=== PATIENT | female | born 1990 | race Caucasian/White ===

== ENCOUNTER 2017-01-18 07:43 | Emergency (ER) | payer MEDICAID, OTHER ==
[2017-01-18 07:44] VITALS: BMI 31.3
[2017-01-18 08:01] VITALS: TEMP 98.2
[2017-01-18] MEDS ORDERED: Sodium Chloride 0.9% 1,000 ML IV STA (08:14)
[2017-01-18] MEDS ORDERED: Albuterol-Ipratrop 3 mg / 0.5 (3 ml) UD IH STA (08:15)
[2017-01-18 08:34] LABS: BASO # 0.01 K/mm3 (0.0-2.0); BASO % 0.2 % (0.0-3.0); EOS # 0.1 (0.0-0.7); EOS % 1.8 % (1.5-5.0); GRAN # 3.13 (1.4-6.5); GRAN % 57.2 % (50.0-68.0); HEMATOCRIT 37.9 % (36.0-48.0); LYMPH # 1.7 (1.2-3.4); LYMPH % 30.7 % (22.0-35.0); MEAN CELL VOLUME 74.3 fl (80.0-105.0); MEAN CORPUSCULAR HEMOGLOBIN 23.5 pg (25.0-35.0); MEAN CORPUSCULAR HGB CONC 31.7 g/dl (31.0-37.0); MEAN PLATELET VOLUME 10.2 fl (7.0-11.0); MONO # 0.6 (0.1-0.6); MONO % 10.1 % (1.0-6.0); RED CELL DISTRIBUTION WIDTH 15.2 % (11.5-14.5); WHITE BLOOD COUNT 5.5 10^3/ul (4.5-11.0)
--- NOTE | 2017-01-18 08:35 | ED PDOC ---
Arrival/HPI - General Chief Complaint: Shortness Of Breath Time Seen by Provider: 01/18/17 08:03 Historian: Patient, Parent - History of Present Illness Narrative History of Present Illness (Text): 01/18/17 08:24 A 26 year old female with no significant past medical history, presents to the emergency department with a complaint of chest discomfort, cough,sore throat, vomiting, rhinorrhea, and difficulty breathing. The patients states that since yesterday, she has vomited 5 times and she has been feeling a burning sensation in her chest. The patient denies denies fevers, chills, headache, dizziness, abdominal pain, nausea, diarrhea, back pain, neck pain, urinary/bowel changes, or any other complaint. PMD: Dr. Sarah Melo Time/Duration: Other (Yesterday) Symptom Onset: Sudden Symptom Course: Unchanged Activities at Onset: Rest, Light Context: Home Past Medical History - Provider Review Nursing Documentation Reviewed: Yes - Infectious Disease Hx of Infectious Diseases: None - Tetanus Immunization Tetanus Immunization: Unknown - Past Medical History Past Medical History: No Previous - Cardiac Hx Cardiac Disorders: No - Pulmonary Hx Respiratory Disorders: No - Neurological Hx Neurological Disorder: No - HEENT Hx HEENT Disorder: No - Renal Hx Renal Disorder: No - Endocrine/Metabolic Hx Endocrine Disorders: No - Hematological/Oncological Hx Blood Disorders: No - Integumentary Hx Dermatological Disorder: No - Musculoskeletal/Rheumatological Hx Musculoskeletal Disorders: No - Gastrointestinal Hx Gastrointestinal Disorders: No - Genitourinary/Gynecological Hx Genitourinary Disorders: No - Psychiatric Hx Psychophysiologic Disorder: No Hx Substance Use: No - Past Surgical History Past Surgical History: No Previous - Anesthesia Hx Anesthesia: No - Suicidal Assessment Feels Threatened In Home Enviroment: No Family/Social History - Physician Review Nursing Documentation Reviewed: Yes Family/Social History: No Known Family HX Smoking Status: Never Smoked Hx Alcohol Use: No Hx Substance Use: No Hx Substance Use Treatment: No Allergies/Home Meds Allergies/Adverse Reactions: Allergies No Known Allergies Allergy (Verified 01/26/16 08:11) Review of Systems - Physician Review All systems were reviewed & negative as marked: Yes - Review of Systems Constitutional: absent: Fevers, Night Sweats ENT: Sore Throat, Rhinorrhea Respiratory: Cough Cardiovascular: Chest Pain Gastrointestinal: Vomiting. absent: Abdominal Pain, Stool Changes, Diarrhea Genitourinary Female: absent: Urine Output Changes Musculoskeletal: absent: Back Pain, Neck Pain Neurological: absent: Headache, Dizziness Physical Exam Vital Signs Reviewed: Yes Vital Signs Temp Pulse Resp BP Pulse Ox 01/18/17 09:38 76 17 123/64 100 01/18/17 08:00 19 100 01/18/17 07:58 98.2 F 89 19 139/87 100 Temperature: Afebrile Blood Pressure: Normal Pulse: Regular Respiratory Rate: Normal Appearance: Positive for: Well-Appearing, Non-Toxic, Comfortable Pain Distress: None Mental Status: Positive for: Alert and Oriented X 3 - Systems Exam Head: Present: Atraumatic, Normocephalic Pupils: Present: PERRL Extroacular Muscles: Present: EOMI Conjunctiva: Present: Normal Mouth: Present: Moist Mucous Membranes Pharnyx: Present: Other (Patient actively coughing in emergency department ) Neck: Present: Normal Range of Motion Respiratory/Chest: Present: Clear to Auscultation, Good Air Exchange. No: Respiratory Distress, Accessory Muscle Use Cardiovascular: Present: Regular Rate and Rhythm, Normal S1, S2. No: Murmurs Abdomen: Present: Normal Bowel Sounds. No: Tenderness, Distention, Peritoneal Signs Back: Present: Normal Inspection Upper Extremity: Present: Normal Inspection. No: Cyanosis, Edema Lower Extremity: Present: Normal Inspection. No: Edema Neurological: Present: GCS=15, CN II-XII Intact, Speech Normal Skin: Present: Warm, Dry, Normal Color. No: Rashes Psychiatric: Present: Alert, Oriented x 3, Normal Insight, Normal Concentration Medical Decision Making ED Course and Treatment: 01/18/17 08:45 Impression: A 26 year old female with a complaint of burning chest discomfort, cough, vomiting, and difficulty breathing Differential Diagnosis included but are not limited to: Bronchitis vs. Viral Syndrome Plan: -- EKG -- Chest X-ray -- Labs -- Duoneb, Pepcid, Zofran, and IV Fluids -- Reassess and disposition Prior Visits: Notes and results from previous visits were reviewed. Patient was last seen in the emergency department on 01/26/2016. The patient was treated for vomiting and diarrhea. The patient was discharged home on Zofran and instructed to follow up with her PMD. Progress Notes: EKG: Ordered, reviewed, and independently interpreted the EKG. Rate : 92 BPM Rhythm : NSR CHEST X-RAY Dictator : Bozena Perla MD Report Date : 01/18/2017 09:48:55 IMPRESSION: No active pulmonary disease. 01/18/17 10:02: Patient states that her symptoms have improved. No longer having burning chest sensation. She will follow up with PMD. - Lab Interpretations Lab Results: 01/18/17 08:00 01/18/17 08:00 Lab Results 01/18/17 08:00: Sodium 140, Potassium 3.9, Chloride 102, Carbon Dioxide 25, Anion Gap 17, BUN 11, Creatinine 0.6 L, Est GFR ( Amer) > 60, Est GFR ( Non-Af Amer) > 60, Random Glucose 92, Calcium 9.0, Total Bilirubin 0.8, AST 19, ALT 25, Alkaline Phosphatase 65, Total Protein 7.8, Albumin 4.4, Globulin 3.3, Albumin/Globulin Ratio 1.3, Lipase 126 01/18/17 08:00: WBC 5.5, RBC 5.10, Hgb 12.0, Hct 37.9, MCV 74.3 L, MCH 23.5 L, MCHC 31.7, RDW 15.2 H, Plt Count 224, MPV 10.2, Gran % 57.2, Lymph % (Auto) 30.7 , Holt % (Auto) 10.1 H, Eos % (Auto) 1.8, Baso % (Auto) 0.2, Gran # 3.13, Lymph # 1.7, Holt # 0.6, Eos # 0.1, Baso # 0.01 I have reviewed the lab results: Yes - RAD Interpretation Radiology Orders: 01/18/17 08:14 CHEST PORTABLE [RAD] Stat - EKG Interpretation Interpreted by ED Physician: Yes Type: 12 lead EKG - Medication Orders Current Medication Orders: Sodium Chloride (Sodium Chloride 0.9%) 1,000 mls @ 100 mls/hr IV .Q10H STA Stop: 01/18/17 18:13 Last Admin: 01/18/17 08:48 Dose: 100 mls/hr eMAR Start Stop Document 01/18/17 08:48 CNR (Rec: 01/18/17 08:48 CNR [id number]) Intravenous Solution Start Date 01/18/17 Start Time 08:48 Discontinued Medications Albuterol/Ipratropium (Duoneb 3 Mg/0.5 Mg (3 Ml) Ud) 3 ml IH STAT STA Stop: 01/18/17 08:16 Last Admin: 01/18/17 08:40 Dose: 3 ml Famotidine (Pepcid) 20 mg IVP STAT STA Stop: 01/18/17 08:15 Last Admin: 01/18/17 08:40 Dose: 20 mg IVP Administration Document 01/18/17 08:40 CNR (Rec: 01/18/17 08:49 CNR [id number]) Charges for Administration # of IVP Administrations 1 Ondansetron HCl (Zofran Inj) 4 mg IVP STAT STA Stop: 01/18/17 08:15 Last Admin: 01/18/17 08:40 Dose: 4 mg IVP Administration Document 01/18/17 08:40 CNR (Rec: 01/18/17 08:48 CNR [id number]) Charges for Administration # of IVP Administrations 1 - Scribe Statement The provider has reviewed the documentation as recorded by the Nareshibhayden Mcmillan Provider Scribe Attestation: All medical record entries made by the Scribe were at my direction and personally dictated by me. I have reviewed the chart and agree that the record accurately reflects my personal performance of the history, physical exam, medical decision making, and the department course for this patient. I have also personally directed, reviewed, and agree with the discharge instructions and disposition. Disposition/Present on Arrival - Present on Arrival Any Indicators Present on Arrival: No History of DVT/PE: No History of Uncontrolled Diabetes: No Urinary Catheter: No History of Decub. Ulcer: No History Surgical Site Infection Following: None - Disposition Have Diagnosis and Disposition been Completed?: Yes Diagnosis: Bronchitis, Vomiting Disposition: HOME/ ROUTINE Disposition Time: 10:08 Patient Plan: Discharge Patient Problems: Current Active Problems Problem Status Onset Bronchitis Acute Vomiting Acute Condition: IMPROVED Discharge Instructions (ExitCare): Acute Bronchitis (ED), Acute Nausea and Vomiting (ED), Viral Syndrome (ED) Additional Instructions: Ms Martin, thank you for letting us take care of you today. Your provider was Dr. Avelar. You were treated for Bronchitis, Viral Syndrome, Vomiting. The emergency medical care you received today was directed at your acute symptoms. If you were prescribed any medication, please fill it and take as directed. It may take several days for your symptoms to resolve. Return to the Emergency Department if your symptoms worsen, do not improve, or if you have any other problems. Please contact your doctor or call one of the physicians/clinics you have been referred to that are listed on the Patient Visit Information form that is included in your discharge packet. Bring any paperwork you were given at discharge with you along with any medications you are taking to your follow up visit. Our treatment cannot replace ongoing medical care by a primary care provider (PCP) outside of the emergency department. Thank you for allowing the [facility] team to be part of your care today. If you had an X-Ray or CT scan: A Radiologist will review the ED reading if any change in treatment is needed we will contact you. If you had a blood, urine, or wound culture: It will take several days for the results, if any change in treatment is needed we will contact you. If you had an STI test: It will take 48 hours for the results. Please call after 1 week if you have not heard back. Prescriptions: Albuterol HFA [Ventolin HFA 90 mcg/actuation (8 g)] 2 puff IH Q4 #1 puff Ranitidine HCl [Zantac] 150 mg PO BID PRN #30 tablet PRN Reason: Pain, Mild (1-3) Referrals: [facility], [Non-Staff] - Follow up with primary Forms: [email or web address] ([employer]), SCHOOL NOTE, WORK NOTE
[2017-01-18 08:45] LABS: ALB/GLOB RATIO 1.3 (1.1-1.8); ALKALINE PHOSPHATASE 65 U/L (38-126); ALT/SGPT 25 U/L (7-56); AST/SGOT 19 U/L (14-36); BILIRUBIN,TOTAL 0.8 mg/dL (0.2-1.3); BLOOD UREA NITROGEN 11 mg/dL (7-21); CARBON DIOXIDE 25 mmol/L (21-33); CHLORIDE 102 mmol/L (95-110); GFR AFRICAN-AMERICAN > 60; GLUCOSE,RANDOM 92 mg/dL (70-110); LIPASE 126 U/L (23-300); POTASSIUM 3.9 mmol/L (3.6-5.0); SODIUM 140 mmol/L (132-148); TOTAL PROTEIN 7.8 g/dL (5.8-8.3)
--- NOTE | 2017-01-18 09:50 | RAD ---
HISTORY: shortness of breath COMPARISON: 01/01/2015. FINDINGS: LUNGS: The lungs are well inflated and clear. PLEURA: No significant pleural effusion identified, no pneumothorax apparent. CARDIOVASCULAR: Normal. OSSEOUS STRUCTURES: No significant abnormalities. VISUALIZED UPPER ABDOMEN: Normal. OTHER FINDINGS: None. IMPRESSION: No active pulmonary disease.
[2017-01-18 10:15] VITALS: BP 109/80; PULSE 78; RESP 16; O2SAT 98
--- NOTE | 2017-01-18 15:00 | CARD ---
APPROVED REPORT EKG Measurement Heart [id number] <Conclusion> Normal sinus rhythm Normal ECG
== END 2017-01-18 10:13 | disposition home or self-care (01) ==
LOC: ED 07:43
DX: J20.9 Acute bronchitis, unspecified (principal); R11.10 Vomiting, unspecified
CPT/HCPCS: 71010; 80053; 83690; 85025; 93005; 96374; 96375; 99285; J2405; J7040